=== PATIENT | female | born 1985 | race African-American/Black ===

== ENCOUNTER 2018-11-02 12:11 | Emergency (ER) | payer OTHER ==
[~2018-11-02] VITALS: Ht 160 cm; Wt 64.0 kg
[~2018-11-02 12:11] MED LIST: FLUO-124; LORA-250; ZIPR20CA2
[2018-11-02 20:51] LABS: BASOPHILS % 0.9 % (0.0-2.0); HEMATOCRIT. 39.6 % (36.0-48.0); HEMOGLOBIN. 13.1 g/dL (12.0-16.0); LYMPHOCYTES % 37.6 % (20.0-50.0); MEAN CORPUSCULAR HEMOGLOBIN 30.5 pg (28.0-32.0); MEAN CORPUSCULAR VOLUME 92.1 fL (81.0-99.0); MEAN PLATELET VOLUME 7.9 fl (7.4-10.4); MONOCYTES % 12.3 % (2.0-8.0); NEUTROPHILS % 40.2 % (40.0-76.0); PLATELET 316 x1000/uL (130-400); RED BLOOD CELL COUNT 4.31 mill/uL (4.2-5.4)
[2018-11-02 20:52] LABS: CHLORIDE 108 mEq/L (98-107)
[2018-11-02 22:46] VITALS: BP 102/55
== END 2018-11-03 01:10 | disposition home or self-care (01) ==
LOC: ER 12:53
DX: R07.89 Other chest pain (principal); F41.9 Anxiety disorder, unspecified; F31.9 Bipolar disorder, unspecified; F12.10 Cannabis abuse, uncomplicated
CPT/HCPCS: 36415; 71045; 83880; 84484; 85379; 93005; 99284